=== PATIENT | male | born 1990 | race Caucasian/White ===

== ENCOUNTER 2017-05-03 15:35 | Emergency (ER) | payer OTHER, MEDICAID | END 2017-05-03 21:42 | disposition home or self-care (01) | LOC: E/R 21:42 | DX: J18.9 Pneumonia, unspecified organism (principal) | CPT/HCPCS: 99284 ==

== ENCOUNTER 2018-02-19 12:32 | Emergency (ER) | payer OTHER | END 2018-02-19 13:44 | disposition home or self-care (01) | LOC: FTE 12:32 | DX: T22.211A Burn of second degree of right forearm, initial encounter (principal); X10.2XXA Contact with fats and cooking oils, initial encounter; Y92.9 Unspecified place or not applicable; Z87.891 Personal history of nicotine dependence | CPT/HCPCS: 99283; Z7502 ==